=== PATIENT | male | born 1985 | race Caucasian/White ===

== ENCOUNTER 2019-02-14 17:40 | Emergency (ER) | payer OTHER ==
[~2019-02-14] VITALS: Ht 175.3 cm; Wt 98.4 kg
[2019-02-14] MEDS ORDERED: [UNRECOGNIZED DRUG - OTHER] (17:48)
[2019-02-14] MEDS ORDERED: [UNRECOGNIZED DRUG - OTHER] (17:48)
[2019-02-14] MEDS ORDERED: MICROZIDE12.5 MG PO (21:29)
== END 2019-02-14 21:36 | disposition home or self-care (01) ==
LOC: ER 17:40
DX: I16.0 Hypertensive urgency (principal); I10 Essential (primary) hypertension

== ENCOUNTER 2019-02-16 15:38 | Emergency (ER) | payer OTHER ==
[~2019-02-16] VITALS: Ht 175.3 cm; Wt 95.3 kg
[~2019-02-16 15:38] MED LIST: MICROZIDE12.5 MG PO; [UNRECOGNIZED DRUG - OTHER]; [UNRECOGNIZED DRUG - OTHER]
[2019-02-16] MEDS ORDERED: VISTARIL50 MG PO (17:46)
== END 2019-02-16 18:02 | disposition home or self-care (01) ==
LOC: ER 15:38
DX: G47.09 Other insomnia (principal); F41.8 Other specified anxiety disorders